=== PATIENT | male | born 1965 | race Caucasian/White ===

== ENCOUNTER → 2018-08-11 | Outpatient (CLI) | payer OTHER ==
[~2018-08-11] MED LIST: BENICAR HCT 201 EACH PO; CRESTOR20 MG PO
[2018-08-11 07:35] VITALS: BP 183/83
[2018-08-11 08:17] VITALS: BP 172/58
--- NOTE | 2018-08-11 11:02 | NUR ---
ARRIVED AMBULATORY. MADE SELF COMFORTABLE. EDUCATION COMPLETED AND QUESTIONS ANSWERED. IV STARTED WTIH OUT DIFFICULTY. THERAPUTIC PHLEBOTOMY COMPLETED WITH OUT DIFFICULTY. 1 UNIT WHOLE BLOOD REMOVED. TOLERATED WELL. MONITORED 30 MIN POST. DENIES QUESTIONS OR NEEDS AT DISCHARGE.
== END ==
LOC: M.INFUS 07:15
DX: D58.2 Other hemoglobinopathies (principal)